=== PATIENT | female | born 1970 ===

== ENCOUNTER 2018-02-10 18:46 | Emergency (ER) | payer OTHER ==
[2018-02-10 19:51] VITALS: BP 127/66
[2018-02-10] MEDS ORDERED: Albuterol/Ipratropium NEB.SOL* Albuterol 2.5 MG/Ipratropium 0.5 MG 3 ML INH ONE (20:32)
[2018-02-10] MEDS ORDERED: guaiFENesin/CODIEN 100MG-10MG* 5 ML UDC PO ONE (20:33)
--- NOTE | 2018-02-10 20:35 | UC ---
Respiratory Complaint HPI - HPI Summary HPI Summary: c/o dry cough for the past 4 days, denies fever, malaise, nasal congestion or sore throat. - History of Current Complaint Chief Complaint: UCRespiratory Stated Complaint: COUGH Time Seen by Provider: 02/10/18 20:14 Hx Obtained From: Patient Hx Last Menstrual Period: 01/31/18 ?: No Onset/Duration: Gradual Onset, Lasting Days Timing: Constant Severity Initially: Mild Severity Currently: Moderate Pain Intensity: 0 Character: Cough: Nonproductive Aggravating Factors: Deep Breaths, Recumbent Position Alleviating Factors: Nothing Associated Signs And Symptoms: Positive: Negative, Dizziness Related History: Seasonal Allergies - Risk Factors Pulmonary Embolism Risk Factors: Negative Cardiac Risk Factors: Negative Pseudomonas Risk Factors: Negative Tuberculosis Risk Factors: Negative - Allergies/Home Medications Allergies/Adverse Reactions: Allergies Allergy/AdvReac Type Severity Reaction Status Date / Time erythromycin base Allergy Nausea And Verified 02/10/18 19:46 Vomiting Home Medications: Home Medications [id number] LIQ* [Robitussin*] 10 ml PO Q4H 02/10/18 [History Confirmed 02/10/18 ] PMH/Surg Hx/FS Hx/Imm Hx Previously Healthy: Yes - Surgical History Surgical History: None - Social History Alcohol Use: None Substance Use Type: None Smoking Status (MU): Never Smoked Tobacco Review of Systems Constitutional: Negative Respiratory: Shortness Of Breath, Cough All Other Systems Reviewed And Are Negative: Yes Physical Exam - Summary Physical Exam Summary: coughing incessantly during examination Triage Information Reviewed: Yes Appearance: Well-Appearing, Obese Vital Signs: Initial Vital Signs Temp 98.7 F 02/10/18 19:44 Pulse 79 02/10/18 19:44 Resp 20 02/10/18 19:44 BP 127/66 02/10/18 19:44 Pulse Ox 100 02/10/18 19:44 Eye Exam: Normal Eyes: Positive: Conjunctiva Clear ENT: Positive: Pharynx normal, TMs normal, Uvula midline Neck: Positive: Supple, Nontender, No Lymphadenopathy Respiratory: Positive: Chest non-tender, Lungs clear, Normal breath sounds, No respiratory distress Cardiovascular: Positive: RRR, No Murmur, Pulses Normal, Brisk Capillary Refill UC Diagnostic Evaluation - Laboratory O2 Sat by Pulse Oximetry: 100 Respiratory Course/Dx - Course Course Of Treatment: started on duoneb nebulization at . Start flovent as prescribed, continue oral hydration. f/u with PCP in 1 week. - Differential Dx/Diagnosis Provider Diagnoses: Acute Bronchitis Discharge - Sign-Out/Discharge Documenting (check all that apply): Discharge/Admit/Transfer - Discharge Plan Condition: Stable Disposition: HOME Prescriptions: Fluticasone DISKUS 250 MCG(NF) [Flovent Diskus 250 MCG(NF)] 2 puff INH BID 7 Days #1 diskus Patient Education Materials: Fluticasone (By breathing), Acute Bronchitis (ED) Referrals: Kassandra Yeung MD [Primary Care Provider] - - Billing Disposition and Condition Condition: STABLE Disposition: HOME
== END 2018-02-10 20:58 | disposition home or self-care (01) ==
LOC: UCCORT 18:46
DX: J40 Bronchitis, not specified as acute or chronic (principal); Z88.3 Allergy status to other anti-infective agents
CPT/HCPCS: 99212; A9270-GY; G0463